=== PATIENT | female | born 1925 | race Caucasian/White ===

== ENCOUNTER → 2016-09-05 | Outpatient (REF) | payer MEDICARE, MEDICAID ==
[~2016-09-05] MED LIST: /ALEN70TA PO; /PHEN50TA PO; /QUET25TA PO; ACET650S3 PR; ACET65TA PO; ALBU83IN; ALBUTEROL INH; AMPI500C8 PO; ARIC10TA; ASPI81TA2 PO; ASPI81TA45; ATIV0.5T3 PO; BISA10SU2 PR; CELE10TA PO; CETI10TA3 PO; DILA100C PO; DOCU10ELUD PO; DULC10SU9 PR; FLEEENE4 PR; FOLI1TAB86 PO; IPRA2IN INH; LASI40TA; LASI80TA PO; LIDO1DIS2 TD; LISI10TA4; LOSA25TA8 PO; MILKSUS; MINER PO; MOM30SS PO; MULTIVITAMIN PO; NYAM10003 TOP; OS CAL PO; OXYC30TA4 PO; POLY IRON PO; POTA10CA2 PO; PRIL40CA PO; PULM1SUS INH; SENOKOT PO; SLOWTAB PO; VITACAP33 PO; WARF1TAB35 PO; WARF5VL PO; ZEBE5TAB; ZOCO40TA PO; [UNRECOGNIZED DRUG - OTHER] PO
== END ==
LOC: SKLAB5 13:48
PROVIDERS: ATTEND Family Medicine
DX: R53.83 Other fatigue (principal); R50.9 Fever, unspecified

== ENCOUNTER → 2016-09-06 | Outpatient (REF) | payer MEDICARE, MEDICAID ==
--- NOTE | 2016-09-06 16:31 | REP ---
LEFT ANKLE, FOUR VIEWS: Four views of the left ankle are performed. There is diffuse osteopenia. No definite fracture or dislocation is seen. The ankle mortise appears anatomic. There is mild soft tissue swelling. Scattered vascular calcifications are present. IMPRESSION: Osteopenia. No evidence of fracture or dislocation. Signed by Ramos Dejesus MD 09/07/2016 05:09 P
--- NOTE | 2016-09-06 16:33 | REP ---
LEFT FOOT, FOUR VIEWS: Four views of the left foot are performed. I see no acute fracture or dislocation. There is diffuse osteopenia. Scattered vascular calcifications are present. There is mild joint space narrowing at the first metatarsal phalangeal joint. There is diffuse narrowing of the interphalangeal joints. IMPRESSION: No definite fracture or dislocation. Osteopenia with mild degenerative changes. Signed by Ramos Dejesus MD 09/07/2016 05:09 P
== END ==
LOC: SKLAB5 06:22
PROVIDERS: ATTEND Family Medicine
DX: R50.9 Fever, unspecified (principal); J44.9 Chronic obstructive pulmonary disease, unspecified; M85.872 Other specified disorders of bone density and structure, left ankle and foot

== ENCOUNTER → 2016-09-08 | Outpatient (REF) | payer MEDICARE, OTHER, MEDICAID ==
[2016-09-08 09:44] LABS: INR 2.68
[2016-09-08 09:47] LABS: ALT/SGPT 23 U/L (12-78); ANION GAP 10 MEQ/L (8-16); BLOOD UREA NITROGEN 17 MG/DL (7-18); CALCIUM LEVEL 8.2 MG/DL (8.8-10.2); CARBON DIOXIDE LEVEL 26 MEQ/L (21-32); CHLORIDE LEVEL 106 MEQ/L (98-107); CREATININE FOR GFR 0.88 MG/DL (0.55-1.02); GLOMERULAR FILTRATION RATE > 60.0 (>32); GLUCOSE, FASTING 138 MG/DL (83-110); POTASSIUM SERUM 3.9 MEQ/L (3.5-5.1); SODIUM LEVEL 142 MEQ/L (136-145)
== END ==
LOC: SKLAB5 08:40
PROVIDERS: ATTEND Family Medicine
DX: I82.90 Acute embolism and thrombosis of unspecified vein (principal); R60.9 Edema, unspecified

== ENCOUNTER → 2016-09-15 | Outpatient (REF) | payer MEDICARE, OTHER, MEDICAID ==
[2016-09-15 09:17] LABS: INR 4.68
== END ==
LOC: SKLAB5 07:27
PROVIDERS: ATTEND Family Medicine
DX: Z15.81 Genetic susceptibility to multiple endocrine neoplasia [MEN] (principal); Z79.01 Long term (current) use of anticoagulants; I82.90 Acute embolism and thrombosis of unspecified vein

== ENCOUNTER → 2016-09-20 | Outpatient (REF) | payer MEDICARE, MEDICAID ==
[2016-09-20 08:54] LABS: INR 2.22
== END ==
LOC: SKLAB5 08:09
PROVIDERS: ATTEND Family Medicine
DX: Z51.81 Encounter for therapeutic drug level monitoring (principal); Z79.01 Long term (current) use of anticoagulants

== ENCOUNTER → 2016-09-21 | Outpatient (REF) | payer MEDICARE, MEDICAID | LOC: SKLAB5 08:15 | PROVIDERS: ATTEND Family Medicine | DX: R30.0 Dysuria (principal) ==

== ENCOUNTER → 2016-09-22 | Outpatient (REF) | payer MEDICARE, MEDICAID ==
[2016-09-22 08:31] LABS: INR 2.52
== END ==
LOC: SKLAB5 07:28
PROVIDERS: ATTEND Family Medicine
DX: Z51.81 Encounter for therapeutic drug level monitoring (principal); Z79.01 Long term (current) use of anticoagulants; I82.90 Acute embolism and thrombosis of unspecified vein

== ENCOUNTER → 2016-09-29 | Outpatient (REF) | payer MEDICARE, MEDICAID ==
[2016-09-29 08:50] LABS: INR 1.9
== END ==
LOC: SKLAB5 12:47
PROVIDERS: ATTEND Family Medicine
DX: I82.90 Acute embolism and thrombosis of unspecified vein (principal)

== ENCOUNTER → 2016-10-06 | Outpatient (REF) | payer MEDICARE, MEDICAID ==
[2016-10-06 08:00] LABS: INR 2.03
[2016-10-06 08:10] LABS: CALCIUM LEVEL 8.8 MG/DL (8.8-10.2); CREATININE FOR GFR 1.01 MG/DL (0.55-1.02); GLOMERULAR FILTRATION RATE 54.9 (>32); POTASSIUM SERUM 4.1 MEQ/L (3.5-5.1)
== END ==
LOC: SKLAB5 08:18
PROVIDERS: ATTEND Family Medicine
DX: I82.409 Acute embolism and thrombosis of unspecified deep veins of unspecified lower extremity (principal)

== ENCOUNTER → 2016-10-11 | Outpatient (REF) | payer MEDICARE, MEDICAID | LOC: SKLAB5 08:01 | PROVIDERS: ATTEND Family Medicine | DX: Z53.9 Procedure and treatment not carried out, unspecified reason (principal) ==

== ENCOUNTER → 2016-10-12 | Outpatient (REF) | payer MEDICARE, MEDICAID | LOC: SKLAB5 03:19 | PROVIDERS: ATTEND Family Medicine | DX: R30.9 Painful micturition, unspecified (principal) ==

== ENCOUNTER → 2016-10-13 | Outpatient (REF) | payer MEDICARE, MEDICAID ==
[2016-10-13 11:02] LABS: INR 1.73
== END ==
LOC: SKLAB5 07:42
PROVIDERS: ATTEND Family Medicine
DX: I82.90 Acute embolism and thrombosis of unspecified vein (principal)

== ENCOUNTER → 2016-10-13 | Outpatient (REF) | payer MEDICARE, MEDICAID | LOC: SKLAB5 07:50 | PROVIDERS: ATTEND Family Medicine | DX: R50.9 Fever, unspecified (principal); R53.83 Other fatigue ==

== ENCOUNTER → 2016-10-20 | Outpatient (REF) | payer MEDICARE, MEDICAID ==
[2016-10-20 09:23] LABS: INR 2.04
== END ==
LOC: SKLAB5 07:49
PROVIDERS: ATTEND Family Medicine
DX: Z51.81 Encounter for therapeutic drug level monitoring (principal); Z79.01 Long term (current) use of anticoagulants

== ENCOUNTER → 2016-10-27 | Outpatient (REF) | payer MEDICARE, MEDICAID ==
[2016-10-27 08:27] LABS: INR 1.91
== END ==
LOC: SKLAB5 07:23
PROVIDERS: ATTEND Family Medicine
DX: Z51.81 Encounter for therapeutic drug level monitoring (principal); Z79.01 Long term (current) use of anticoagulants

== ENCOUNTER → 2016-11-03 | Outpatient (REF) | payer MEDICARE, MEDICAID | LOC: SKLAB5 08:52 | PROVIDERS: ATTEND Family Medicine | DX: I82.90 Acute embolism and thrombosis of unspecified vein (principal); Z53.9 Procedure and treatment not carried out, unspecified reason ==

== ENCOUNTER → 2016-11-04 | Outpatient (REF) | payer MEDICARE, MEDICAID ==
[2016-11-04 07:48] LABS: INR 1.8
[2016-11-04 08:02] LABS: CALCIUM LEVEL 8.2 MG/DL (8.8-10.2); CREATININE FOR GFR 1.03 MG/DL (0.55-1.02); GLOMERULAR FILTRATION RATE 53.7 (>32); POTASSIUM SERUM 4.2 MEQ/L (3.5-5.1)
== END ==
LOC: SKLAB5 07:25
PROVIDERS: ATTEND Family Medicine
DX: I82.90 Acute embolism and thrombosis of unspecified vein (principal); I50.9 Heart failure, unspecified

== ENCOUNTER → 2016-11-10 | Outpatient (REF) | payer MEDICARE, MEDICAID ==
[2016-11-10 09:15] LABS: INR 1.6
== END ==
LOC: SKLAB5 07:33
PROVIDERS: ATTEND Family Medicine
DX: I82.90 Acute embolism and thrombosis of unspecified vein (principal)

== ENCOUNTER → 2016-11-17 | Outpatient (REF) | payer MEDICARE, MEDICAID ==
[2016-11-17 10:00] LABS: INR 1.54
== END ==
LOC: SKLAB5 07:59
PROVIDERS: ATTEND Family Medicine
DX: I82.409 Acute embolism and thrombosis of unspecified deep veins of unspecified lower extremity (principal)

== ENCOUNTER → 2016-11-24 | Outpatient (REF) | payer MEDICARE, MEDICAID ==
[2016-11-24 09:45] LABS: INR 2.53
== END ==
LOC: SKLAB5 08:25
PROVIDERS: ATTEND Family Medicine
DX: Z51.81 Encounter for therapeutic drug level monitoring (principal); Z79.01 Long term (current) use of anticoagulants

== ENCOUNTER → 2016-12-01 | Outpatient (REF) | payer MEDICARE, MEDICAID ==
[2016-12-01 09:22] LABS: INR 2.89
== END ==
LOC: SKLAB5 07:49
PROVIDERS: ATTEND Family Medicine
DX: Z51.81 Encounter for therapeutic drug level monitoring (principal); Z79.01 Long term (current) use of anticoagulants

== ENCOUNTER → 2016-12-06 | Outpatient (REF) | payer MEDICARE, MEDICAID ==
[2016-12-06 08:27] LABS: INR 1.61
[2016-12-06 08:36] LABS: CALCIUM LEVEL 8.2 MG/DL (8.8-10.2); CREATININE FOR GFR 1.12 MG/DL (0.55-1.02); GLOMERULAR FILTRATION RATE 48.8 (>32); POTASSIUM SERUM 4.3 MEQ/L (3.5-5.1)
== END ==
LOC: SKLAB5 09:17
PROVIDERS: ATTEND Family Medicine
DX: Z51.81 Encounter for therapeutic drug level monitoring (principal); Z79.01 Long term (current) use of anticoagulants; I50.9 Heart failure, unspecified

== ENCOUNTER → 2016-12-15 | Outpatient (REF) | payer MEDICARE, MEDICAID ==
[2016-12-15 08:40] LABS: INR 2.02
== END ==
LOC: SKLAB5 07:45
PROVIDERS: ATTEND Family Medicine
DX: Z51.81 Encounter for therapeutic drug level monitoring (principal); Z79.01 Long term (current) use of anticoagulants

== ENCOUNTER → 2016-12-22 | Outpatient (REF) | payer MEDICARE, MEDICAID ==
[~2016-12-22] MED LIST changes: +MORP15TASA PO; +MORP1CAP47 PO; +OXYM10TA PO
[2016-12-22 09:07] LABS: INR 2.03
== END ==
LOC: SKLAB5 07:20
PROVIDERS: ATTEND Family Medicine
DX: Z79.01 Long term (current) use of anticoagulants (principal)

== ENCOUNTER → 2016-12-29 | Outpatient (REF) | payer MEDICARE, MEDICAID ==
[2016-12-29 08:58] LABS: INR 2.43
== END ==
LOC: SKLAB5 09:34
PROVIDERS: ATTEND Family Medicine
DX: Z79.01 Long term (current) use of anticoagulants (principal)

== ENCOUNTER → 2017-01-05 | Outpatient (REF) | payer MEDICARE, MEDICAID ==
[2017-01-05 10:24] LABS: INR 2.53
[2017-01-05 10:40] LABS: CREATININE FOR GFR 1.07 MG/DL (0.55-1.02); GLOMERULAR FILTRATION RATE 51.4 (>32); POTASSIUM SERUM 4.3 MEQ/L (3.5-5.1)
== END ==
LOC: SKLAB5 07:11
PROVIDERS: ATTEND Family Medicine
DX: Z51.81 Encounter for therapeutic drug level monitoring (principal); Z79.01 Long term (current) use of anticoagulants

== ENCOUNTER → 2017-01-12 | Outpatient (REF) | payer MEDICARE, MEDICAID ==
[2017-01-12 09:20] LABS: INR 2.43
== END ==
LOC: SKLAB5 09:48
PROVIDERS: ATTEND Family Medicine
DX: Z51.81 Encounter for therapeutic drug level monitoring (principal); Z79.01 Long term (current) use of anticoagulants

== ENCOUNTER → 2017-01-19 | Outpatient (REF) | payer MEDICARE, MEDICAID ==
[2017-01-19 08:59] LABS: INR 2.27
== END ==
LOC: SKLAB5 08:28
PROVIDERS: ATTEND Family Medicine
DX: Z51.81 Encounter for therapeutic drug level monitoring (principal); Z79.01 Long term (current) use of anticoagulants

== ENCOUNTER → 2017-01-20 | Outpatient (REF) | payer MEDICARE, MEDICAID | LOC: SKLAB5 08:41 | PROVIDERS: ATTEND Family Medicine | DX: Z11.2 Encounter for screening for other bacterial diseases (principal) ==

== ENCOUNTER → 2017-01-25 | Outpatient (REF) | payer MEDICARE, MEDICAID ==
[2017-01-25 13:55] LABS: BASO % 0.2 % (0.0-1.0); EOS # 0.1 K/mm3 (0.0-0.50); EOS % 1.2 % (0.0-3.0); LARGE UNSTAINED CELL # 0.2 K/mm3 (0.0-0.4); LARGE UNSTAINED CELL % 2.1 % (0.0-4.0); LYMPH % 12.1 % (24.0-44.0); MEAN CORPUSCULAR HEMOGLOBIN 34.5 pg (27.0-33.0); MEAN CORPUSCULAR HGB CONC 34.6 g/dl (32.0-36.5); MEAN CORPUSCULAR VOLUME 99.8 fl (80.0-96.0); MONO # 0.5 K/mm3 (0.0-0.8); MONO % 6.2 % (0.0-5.0); NEUTROPHILS # 6.1 K/mm3 (1.8-7.7); NEUTROPHILS % 78.2 % (36.0-66.0); PLATELET COUNT, AUTOMATED 139 k/mm3 (150-450); RED CELL DISTRIBUTION WIDTH 12.1 % (11.5-14.5); WHITE BLOOD COUNT 7.9 K/mm3 (4.0-10.0)
== END ==
LOC: SKLAB5 13:18
PROVIDERS: ATTEND Family Medicine
DX: R50.9 Fever, unspecified (principal); R35.0 Frequency of micturition; R41.0 Disorientation, unspecified

== ENCOUNTER → 2017-01-26 | Outpatient (REF) | payer MEDICARE, MEDICAID ==
[2017-01-26 09:43] LABS: INR 2.87
== END ==
LOC: SKLAB5 12:14
PROVIDERS: ATTEND Family Medicine
DX: Z51.81 Encounter for therapeutic drug level monitoring (principal); Z79.01 Long term (current) use of anticoagulants

== ENCOUNTER → 2017-01-27 | Outpatient (REF) | payer MEDICARE, MEDICAID ==
[2017-01-27 13:07] LABS: CALCIUM LEVEL 8.7 MG/DL (8.8-10.2); CREATININE FOR GFR 1.41 MG/DL (0.55-1.02); GLOMERULAR FILTRATION RATE 37.4 (>32); POTASSIUM SERUM 4.5 MEQ/L (3.5-5.1)
[2017-01-27 13:34] LABS: MEAN CORPUSCULAR HEMOGLOBIN 34.1 pg (27.0-33.0); MEAN CORPUSCULAR HGB CONC 33.3 g/dl (32.0-36.5); MEAN CORPUSCULAR VOLUME 101.8 fl (80.0-96.0); RED CELL DISTRIBUTION WIDTH 12.2 % (11.5-14.5); WHITE BLOOD COUNT 9.2 K/mm3 (4.0-10.0)
--- NOTE | 2017-01-27 15:00 | REP ---
PORTABLE CHEST X-RAY: Sitting AP view. HISTORY: Elevated temperature. Wheezing. Comparison chest x-ray September 03, 2016. FINDINGS: The lungs are symmetrically aerated. Patient is rotated somewhat to the right. There is haziness at the left base consistent with infiltrate versus atelectasis. 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 There is an old and possibly ununited displaced fracture of the proximal humerus on the left. No other significant bony abnormality is seen. The aorta is calcific and tortuous. IMPRESSION: Hazy density left base question infiltrate versus atelectasis. Signed by Joe Dunn MD 01/27/2017 04:38 P
== END ==
LOC: SKLAB5 08:44
PROVIDERS: ATTEND Family Medicine
DX: R50.9 Fever, unspecified (principal)

== ENCOUNTER → 2017-01-30 | Outpatient (REF) | payer MEDICARE, MEDICAID ==
[2017-01-30 10:55] LABS: INR 1.58
== END ==
LOC: SKLAB5 09:59
PROVIDERS: ATTEND Family Medicine
DX: Z86.718 Personal history of other venous thrombosis and embolism (principal)

== ENCOUNTER → 2017-02-02 | Outpatient (REF) | payer MEDICARE, MEDICAID ==
[2017-02-02 09:12] LABS: INR 1.98
== END ==
LOC: SKLAB5 07:28
PROVIDERS: ATTEND Family Medicine
DX: Z51.81 Encounter for therapeutic drug level monitoring (principal); Z79.01 Long term (current) use of anticoagulants

== ENCOUNTER → 2017-02-09 | Outpatient (REF) | payer MEDICARE, MEDICAID ==
[2017-02-09 10:00] LABS: INR 2.47
== END ==
LOC: SKLAB5 08:03
PROVIDERS: ATTEND Family Medicine
DX: Z51.81 Encounter for therapeutic drug level monitoring (principal); Z79.01 Long term (current) use of anticoagulants

== ENCOUNTER → 2017-02-16 | Outpatient (REF) | payer MEDICARE, MEDICAID ==
[2017-02-16 10:41] LABS: INR 2.06
== END ==
LOC: SKLAB5 07:21
PROVIDERS: ATTEND Family Medicine
DX: Z51.81 Encounter for therapeutic drug level monitoring (principal); Z79.01 Long term (current) use of anticoagulants

== ENCOUNTER → 2017-02-23 | Outpatient (REF) | payer MEDICARE, MEDICAID ==
[2017-02-23 09:45] LABS: INR 2.21
== END ==
LOC: SKLAB5 07:25
PROVIDERS: ATTEND Family Medicine
DX: Z79.01 Long term (current) use of anticoagulants (principal)

== ENCOUNTER → 2017-03-02 | Outpatient (REF) | payer MEDICARE, MEDICAID ==
[~2017-03-02] MED LIST changes: +ALBU83IN INH; +ATIV1TAB10 PO; +COLA100C5 PO; +COUM1TAB17 PO; +COUM2.5T17 PO; +DILA50HA PO; +DIOV40TA PO; +FORMOTEROL NEB; +GUAISYP5 PO; +IPRASOL4 NEB; +LASI40TA PO; +MILKSUS PO; +MORP-38 PO; +NEUR300C PO; +OMEP40CA2 PO; +PRED20TA PO; +PULM0.5S INH; +SENN1TAB2 PO; +SERO200T PO; +SING10TA32 PO; +SORB1SOL PO; +TRAZ50TA11 PO; +[UNRECOGNIZED DRUG - OTHER] PO
[2017-03-02 08:28] LABS: INR 2.82
== END ==
LOC: SKLAB5 09:54
PROVIDERS: ATTEND Family Medicine
DX: Z51.81 Encounter for therapeutic drug level monitoring (principal); Z79.01 Long term (current) use of anticoagulants

== ENCOUNTER → 2017-03-09 | Outpatient (REF) | payer MEDICARE, MEDICAID ==
[2017-03-09 10:01] LABS: INR 4.95
[2017-03-09 10:33] LABS: CALCIUM LEVEL 8.1 MG/DL (8.8-10.2); CREATININE FOR GFR 1.07 MG/DL (0.55-1.02); GLOMERULAR FILTRATION RATE 51.4 (>32); POTASSIUM SERUM 4.6 MEQ/L (3.5-5.1)
== END ==
LOC: SKLAB5 08:19
PROVIDERS: ATTEND Family Medicine
DX: R60.9 Edema, unspecified (principal); Z51.81 Encounter for therapeutic drug level monitoring; Z79.01 Long term (current) use of anticoagulants

== ENCOUNTER → 2017-03-11 | Outpatient (REF) | payer MEDICARE, MEDICAID ==
[2017-03-11 07:16] LABS: INR 2.93
== END ==
LOC: SKLAB5 07:24
PROVIDERS: ATTEND Family Medicine
DX: I48.91 Unspecified atrial fibrillation (principal); Z51.81 Encounter for therapeutic drug level monitoring; Z79.01 Long term (current) use of anticoagulants

== ENCOUNTER → 2017-03-13 | Outpatient (REF) | payer MEDICARE, MEDICAID ==
[2017-03-13 09:00] LABS: INR 2.16
== END ==
LOC: SKLAB5 07:25
PROVIDERS: ATTEND Family Medicine
DX: Z51.81 Encounter for therapeutic drug level monitoring (principal); Z79.01 Long term (current) use of anticoagulants

== ENCOUNTER → 2017-03-16 | Outpatient (REF) | payer MEDICARE, MEDICAID ==
[2017-03-16 10:33] LABS: INR 2.31
[2017-03-16 10:51] LABS: ALBUMIN/GLOBULIN RATIO 0.88 (1.00-1.93); BILIRUBIN,TOTAL 0.4 MG/DL (0.2-1.0); CALCIUM LEVEL 8.6 MG/DL (8.8-10.2); CREATININE FOR GFR 0.99 MG/DL (0.55-1.02); GLOMERULAR FILTRATION RATE 56.2 (>32); POTASSIUM SERUM 4.6 MEQ/L (3.5-5.1); TOTAL PROTEIN 6.4 GM/DL (6.4-8.2)
== END ==
LOC: SKLAB5 08:56
PROVIDERS: ATTEND Family Medicine
DX: Z51.81 Encounter for therapeutic drug level monitoring (principal); Z79.01 Long term (current) use of anticoagulants

== ENCOUNTER → 2017-03-23 | Outpatient (REF) | payer MEDICARE, MEDICAID ==
[2017-03-23 08:21] LABS: INR 2.28
== END ==
LOC: SKLAB5 06:30
PROVIDERS: ATTEND Family Medicine
DX: Z51.81 Encounter for therapeutic drug level monitoring (principal); Z79.01 Long term (current) use of anticoagulants